=== PATIENT | female | born 1985 | race Hispanic/Latino ===

== ENCOUNTER 2016-12-19 14:29 | Outpatient (CLI) | payer OTHER, MEDICAID ==
[2016-12-19] MEDS ORDERED: LACTATED RINGERS 500 ML IV ONE (14:30)
[2016-12-19 15:17] VITALS: BP 108/69
[2016-12-19 16:31] LABS: Bacteria,Urine 1+ /HPF (Negative); Bilirubin,Urine NEG (Negative); Blood,Urine SM (Negative); Ketones,Urine NEG (Negative); Leukocyte Esterase,Urine LG (Negative); Mucus,Urine FEW /HPF; Nitrite,Urine NEG (Negative); Protein,Urine <15 mg/dL mg/dL (Negative); Urobilinogen,Urine < 2.0 mg/dL (<2.0)
--- NOTE | 2016-12-20 07:55 | Ultrasound Report ---
ULTRASOUND OB LIMITED History: Leaking fluid, premature rupture of membranes. Technique: Transabdominal ultrasound with Doppler interrogation. Gestation: Single Position: Breech Amniotic Fluid: Normal HARVEY = 19.5 cm Heart Rate: 143 BPM
== END 2016-12-19 17:41 | disposition home or self-care (01) ==
LOC: TRG 14:29
PROVIDERS: ATTEND Obstetrics & Gynecology
DX: O99.333 Smoking (tobacco) complicating pregnancy, third trimester (principal); O32.1XX0 Maternal care for breech presentation, not applicable or unspecified; O42.92 Full-term premature rupture of membranes, unspecified as to length of time between rupture and onset of labor; O47.02 False labor before 37 completed weeks of gestation, second trimester; Z3A.24 24 weeks gestation of pregnancy
CPT/HCPCS: 76815; 81001

== ENCOUNTER 2017-04-02 12:53 | Inpatient (IN) | payer MEDICAID ==
--- NOTE | 2017-04-02 15:29 | History and Physical Report ---
History of Present Illness Date of examination: 04/02/17 Date of admission: 04/02/2017 Chief complaint: 31 yo at 39w6d with EDC 04/03/2017 admitted for non-reassuring status and polyhydramnios for induction of labor. She telephoned and c/o persitent painful contractions and persistent "leakage" and was sent to triage and found to have non-reactive NST, BPP 6/8 (no breathing) and an HARVEY of 28. MBT O pos, Rub-NOT IMMUNE, GBS neg Known Arely-cesar Risk Factors in this : Non-reassuring status at 39 wk EGA, Polyhydramnios, Maternal smoking, 1 abnl value on GTT. History of present illness: Remainder of H&P from [facility] and confirmed today OB Intake Father of baby: Mayito Ernandez FOB contact #: [phone] Vital Signs Height: 64 in. Weight (lb): 140 BMI: 24.1 BP: 114/ 74 mm Hg Ur. Protein: negative Ur. Glucose: negative Chief Complaint/Current Status: Patient presents for missed period. No complaints.....aharris Menstrual History Regularity: regular Menses every: 28 days Duration: 5 LMP: 06/27/2016 LMP reliability: definite LMP character: diabetes solutions specialist test type: urine test BC at conception: none Planned ? yes EDC Calculations LMP: 04/03/2017 Past History : 3 Term Births: 2 Premature Births: 0 Living Children: 2 Para: 2 Mult. Births: 0 Prev : 0 Aborta: 0 # 1 Delivery date: 10/11/2010 Weeks Gestation: 39 Delivery type: Vaginal Anesthesia type: epidural Delivery location: [facility] Infant Sex: male Comments: ERROR IN CHARTING # 2 Delivery date: 10/11/2010 Weeks Gestation: 39 Delivery type: Anesthesia type: none Delivery location: [facility] Sex: male weight: 8.88 Name: vanessa Comments: none # 3 Delivery date: 06/02/2012 Weeks Gestation: 39 Delivery type: Vaginal Anesthesia type: epidural Delivery location: [facility] Sex: male weight: 7.81 Comments: none Past Medical History: Reviewed history from 04/16/2015 and no changes required: Anxiety Past Surgical History: Reviewed history from 06/29/2012 and no changes required: positive, T&A tongue oral Past Medical History Abnormal PAP: negative LINDA Exposure: negative Infertility: negative Uterine Anomaly: negative Uterine Surgery (not C/S): negative Other Gynecologic Problems: negative Social Hx: Patient is single appeals coordinator Patient is Smoking History: Patient currently smokes every day. Infection History Hx of STD: none HIV Risk Eval: low risk Hepatitis B Risk Eval: low risk Personal hx. of genital herpes: no Partner hx. of genital herpes: no Varicella/Chicken Pox Status: Previous Disease TB Risk: no Genetic History Congenital Heart Defect: Mom: no Dad: no Jill Disease: Mom: no Dad: no Thalassemia Mom: no Dad: no Neural Tube Defect Mom: no Dad: no Down's Syndrome Mom: no Dad: no Audi-Sachs Mom: no Dad: no Sickle Cell Disease/Trait Mom: no Dad: no Hemophilia Mom: no Dad: no Muscular Dystrophy Mom: no Dad: no Cystic Fibrosis Mom: no Dad: no [place] Chorea Mom: no Dad: no Mental Retardation Mom: no Dad: no Fragile X Mom: no Dad: no Other Genetic/Chromosomal Disorder Mom: no Dad: no Child w/other defect Mom: no Dad: no Enviromental Exposures Xray Exposure: no Medication, drug, or alcohol use since LMP: no Chemical/Other Exposure: no Exposure to Cat Liter: no Hx of Parvovirus (Fifth Disease): no Occupational Exposure to Children: none Active Medications (reviewed today): MULTI VITAMIN () ORTHO TRI-CYCLEN LO 0.025 MG TABS (NORGESTIMATE-ETHINYL ESTRADIOL) 1 po q day as directed KLONOPIN TABS (CLONAZEPAM TABS) CELEXA TABS (CITALOPRAM HYDROBROMIDE TABS) Current Allergies (reviewed today): ERYTHROMYCIN (Critical) Laboratory Results Routine Urinalysis Leukocytes: negative Nitrite: negative Urobilinogen: negative Protein: negative pH: 6.0 Blood: negative Spec. [place]: 1.015 Ketone: negative Bilirubin: negative Glucose: negative Urine HCG: positive Review of Systems General Denies fever, chills, sweats, anorexia, fatigue, weakness, malaise, weight loss and sleep disorder. Denies nausea, vomiting, headache, swelling of legs, abdominal pain, vaginal discharge, vaginal bleeding and contractions. Denies vaginal discharge, incontinence, dysuria, hematuria, urinary frequency, amenorrhea, menorrhagia, abnormal vaginal bleeding, pelvic pain, genital sores, decreased libido, painful periods, painful sex, urinary urgency, hot flashes, vaginal dryness, vaginal itching and vaginal odor. CV Denies chest pains, palpitations, syncope, dyspnea on exertion, orthopnea, PND and peripheral edema. Resp Denies cough, dyspnea at rest, excessive sputum, hemoptysis, wheezing and pleurisy. GI Denies nausea, vomiting, diarrhea, constipation, change in bowel habits, abdominal pain, melena, hematochezia, jaundice, gas/bloating, indigestion/ heartburn, dysphagia and odynophagia. Endo Denies cold intolerance, heat intolerance, polydipsia, polyphagia, polyuria and unusual weight change. Breast Denies left breast lump, right breast lump, nipple discharge, bloody discharge from nipple, breast pain, abnormal mammogram and breast enlargement. MS Denies back pain, joint pain, joint swelling, muscle cramps, muscle weakness, stiffness, arthritis, sciatica, restless legs, leg pain at night and leg pain with exertion. Derm Denies rash, itching, dryness and suspicious lesions. Neuro Denies paralysis, paresthesias, headache, seizures, tremors, vertigo, transient blindness, frequent falls, frequent headaches and difficulty walking. Psych Denies depression, anxiety, irritability and mood swings. Eyes Denies blurring, diplopia, irritation, discharge, vision loss, eye pain and photophobia. ENT Denies earache, ear discharge, tinnitus, decreased hearing, nasal congestion, nosebleeds, sore throat and hoarseness. Allergy Denies urticaria, allergic rash, hay fever and recurrent infections. Heme Denies abnormal bruising, bleeding and enlarged lymph nodes. PHYSICAL EXAM HEENT: PERRLA, normal conjunctiva, external nose and nasal mucosa normal, oropharynx clear Neck/Thyroid: supple, thyroid normal Skin no significant abnormal lesions or rashes Chest: respiratory effort normal, clear to auscultation Breasts: normal without skin changes or masses CV: regular, normal S1-S2, no murmur, no rub, no gallop Abdomen: normal bowel sounds, soft, nontender, no HSM Musculoskeletal: grossly normal ROM in joints, no joint tenderness or muscle weakness Neuro: grossly normal DTRs, sensation, strength, cranial nerves Extremities: no clubbing, cyanosis, or edema DIRECTOR POST Exams Vulva/Vagina: No lesions, normal BUS, normal rugae Cervix: No lesions; no cervical motion tenderness Uterus: normal size and position, midline, mobile palpates to approx 4 weeks Adnexae: no masses or tenderness Rectovaginal: no masses or tenderness Flowsheet View for Follow-up Visit Weight: 140 Blood pressure: 114 / 74 Urine protein: negative Urine glucose: negative Urine nitrite: negative Education Provided: 1) Discussed post- contraception options and the plan at this time is for tubal ligation. Impression & Recommendations: Problem # 1: Other specified irregular menstruation (DXB32-A47.5) Orders: Vaginal Delivery(w/ antepartum and care) (CPT-06991) Ofc Vst Est 33914 (CPT-97954) Handling specimen fee (CPT-86236) Urine Test (UPT) (CPT-23221) Urine Chemstrip (CPT-73865) Missed period US (CPT-71549) Pap/GC/CT-HPV w/ rflx 16/18([id number])([id number]) (CPT-73611) Past History - Obstetrical History : 3 Medications and Allergies Allergies Allergy/AdvReac Type Severity Reaction Status Date / Time No Known Allergies Allergy Verified 12/19/16 14:38 - Vital Signs Vital signs: Vital Signs Pulse BP 100 H 120/70 04/02/17 13:11 04/02/17 13:11 Temp Pulse Resp BP Pulse Ox 98.3 F 100 H 18 120/70 98 04/02/17 13:21 04/02/17 13:21 04/02/17 13:21 04/02/17 13:21 04/02/17 13:21 Results All other labs normal. Assessment and Plan - Patient Problems (1) Non-reassuring heart rate or rhythm affecting management of mother Current Visit: Yes Status: Acute Plan to address problem: admit for induction of labor with Cervidil due to unfavorable cervix and polyhydramnios (2) Polyhydramnios affecting in third trimester Current Visit: Yes Status: Acute (3) 39 weeks gestation of Current Visit: Yes Status: Acute (4) Smoker Current Visit: Yes Status: Chronic
[2017-04-02] MEDS ORDERED: XYLOCAINE 2% INFILTRATI ONE (15:38)
[2017-04-02] MEDS ORDERED: ePHEDrine SULFATE IV PRN ×2 (15:38→22:53)
[2017-04-02] MEDS ORDERED: SUBLIMAZE IV PRN (15:38)
[2017-04-02] MEDS ORDERED: STADOL IV PRN (15:38)
[2017-04-02] MEDS ORDERED: BRETHINE IVP PRN (15:38)
[2017-04-02] MEDS ORDERED: MINERAL OIL PO PRN (15:38)
[2017-04-02] MEDS ORDERED: BRETHINE SUB-Q PRN (15:38)
[2017-04-02] MEDS ORDERED: ZOFRAN IV PRN (15:38)
--- NOTE | 2017-04-02 15:55 | Ultrasound Report ---
FINAL REPORT EXAM: US OB LIMITED HISTORY: decreased movment TECHNIQUE: Ultrasound biophysical profile PRIORS: None. FINDINGS: Single live intrauterine gestation is present with heart rate of 150 beats per minute Biophysical profile was performed respiratory motion 0 Body movement 2 tone 2 Amniotic fluid volume 2 Total 10/13 Impression Biophysical profile 10/13
--- NOTE | 2017-04-02 15:58 | Ultrasound Report ---
FINAL REPORT EXAM: US OB BPP WO NON-STRESS HISTORY: NON REACTIVE NST, DECRASED BEAT TO BEAT TECHNIQUE: PRIORS: None. FINDINGS: Single live intrauterine gestation is present with heart rate of 150 beats per minute Biophysical profile was performed respiratory motion 0 Body movement 2 tone 2 Amniotic fluid volume 2 Total 10/13 Impression Biophysical profile 10/13 IMPRESSION: Biophysical profile 10/13
[2017-04-02] MEDS ORDERED: CERVIDIL VG ONE ×2 (16:00→18:00)
[2017-04-02 16:48] LABS: Hematocrit 32.9 % (30.3-42.9); Hemoglobin 10.9 gm/dl (10.1-14.3); Mean Corpuscular HGB Conc 33 % (30-34); Mean Corpuscular Hemoglobin 27 pg (28-32); Mean Corpuscular Volume 83 fl (79-97); Platelet Count 310 K/mm3 (140-440); Red Blood Count 3.98 M/mm3 (3.65-5.03); Red Cell Distribution Width 14.3 % (13.2-15.2); White Blood Count 19.2 K/mm3 (4.5-11.0)
[2017-04-02 16:50] LABS: Alanine Aminotransferase 7 units/L (7-56); Albumin 3.3 g/dL (3.9-5); Albumin/Globulin Ratio 1.1 %; Alkaline Phosphatase 153 units/L (35-129); Anion Gap 20 mmol/L; BUN/Creatinine Ratio 20; Blood Urea Nitrogen 8 mg/dL (7-17); Calcium 8.6 mg/dL (8.4-10.2); Carbon Dioxide 21 mmol/L (22-30); Chloride 97.4 mmol/L (98-107); Glucose 79 mg/dL (65-100); Sodium 134 mmol/L (137-145); Total Protein 6.3 g/dL (6.3-8.2)
[2017-04-02] MEDS ORDERED: AMBIEN PO PRN (19:28)
[2017-04-02] MEDS ORDERED: HABITROL TD SCH (20:00)
[2017-04-02] MEDS: LACTATED RINGERS 1,000 ML IV SCH ×3 (21:52→23:34)
--- NOTE | 2017-04-02 22:08 | Event Note ---
Date: 04/02/17 Called for frequent painful contractions which have now spaced out a little, tracing now Cat 2 after maternal dose of fentanyl. Will preload and give epidural then try to AROM and begin Pitocin. Cervidil still in at this point. Nurse exam is a change at 3 cm, 40, -3 and dev to R.
--- NOTE | 2017-04-02 22:52 | Anesthesia Consultation ---
Anesthesia Consult and Med Hx Date of service: 04/02/17 - Airway Anesthetic Teeth Evaluation: Good ROM Head & Neck: Adequate Mental/Hyoid Distance: Adequate Mallampati Class: Class II Intubation Access Assessment: Good - Pulmonary Exam CTA: Yes - Cardiac Exam Cardiac Exam: No Murmur - Pre-Operative Health Status ASA Pre-Surgery Classification: ASA2 Proposed Anesthetic Plan: Epidural - Pulmonary Hx Asthma: No COPD: No Hx Pneumonia: No - Cardiovascular System Hx Hypertension: No - Central Nervous System Hx Seizures: No Hx Psychiatric Problems: Yes (anxiety) - Endocrine Hx Renal Disease: No Hx End Stage Renal Disease: No Hx Hypothyroidism: No Hx Hyperthyroidism: No - Hematic Hx Anemia: No Hx Sickle Cell Disease: No - Other Systems Hx Alcohol Use: No
[2017-04-02] MEDS ORDERED: NARCAN 2 MG/2 ML IV PRN (22:53)
[2017-04-02] MEDS ORDERED: fentaNYL-BUPIV 2 MCG/ML-0.125% 200 MCG/100 ML BAG EPIDURAL SCH (23:00)
[2017-04-03] MEDS: LACTATED RINGERS 1,000 ML IV SCH (01:00)
[2017-04-03] MEDS: PITOCin/NS 20 UNIT/1000ML DRIP 20 UNITS/1,000 ML BAG IV SCH ×2 (02:12→03:22)
--- NOTE | 2017-04-03 02:34 | Procedure Note ---
OB Delivery Note - Delivery Date of Delivery: 04/03/17 Surgeon: SELIN PERZE Estimated blood loss: 300cc - Vaginal Delivery presentation: vertex Delivery position: OA Intrapartum events: mult. late decelerations (not consistent nor with every contraction and close to delivery) Delivery induction: cervidil Delivery augmentation: rupture of membranes Delivery monitor: external FHT, external uterine, internal FHT, internal uterine Route of delivery: Delivery placenta: manual (calcified, bi-lobed, adherent) Delivery cord: 3 umbilical vessels Episiotomy: none Delivery laceration: 1st degree Delivery repair: vicryl Anesthesia: epidural - Infant A at 1 minute: 8 at 5 minutes: 9 Infant Gender: Female (6#8oz)
[2017-04-03] MEDS ORDERED: PHENERGAN PO PRN (02:35)
[2017-04-03] MEDS ORDERED: ZOFRAN IV PRN (02:35)
[2017-04-03] MEDS ORDERED: MILK OF MAGNESIA PO PRN (02:35)
[2017-04-03] MEDS ORDERED: BENADRYL PO PRN (02:35)
[2017-04-03] MEDS ORDERED: PHENERGAN PR PRN (02:35)
[2017-04-03] MEDS ORDERED: DULCOLAX PR PRN (02:35)
[2017-04-03] MEDS ORDERED: TYLENOL PO PRN (02:35)
[2017-04-03] MEDS ORDERED: SODIUM CHLORIDE FLUSH SYRINGE 10 ML IV PRN (03:00)
[2017-04-03] MEDS: TUCKS PAD TP PRN (04:28)
[2017-04-03] MEDS: MOTRIN PO SCH ×4 (04:28→23:31)
[2017-04-03] MEDS: NORCO 5/325 PO PRN ×3 (08:15→23:31)
[2017-04-03 15:49] LABS: Hematocrit 27.4 % (30.3-42.9)
[2017-04-03] MEDS: HABITROL TD SCH (20:14)
[2017-04-04] MEDS: NORCO 5/325 PO PRN ×3 (05:31→18:07)
[2017-04-04] MEDS: MOTRIN PO SCH ×3 (05:31→18:07)
[2017-04-04] MEDS: TUCKS PAD TP PRN (05:37)
[2017-04-04] MEDS ORDERED: BOOSTRIX IM ONE (06:00)
--- NOTE | 2017-04-04 08:14 | Progress Note ---
Assessment and Plan patient resting well, no complaints. Lochia scant, VSSAF, H&H 9.0/27.4 ( acute anemia from blood loss.) Patient desires d/c home tomorrow morning. Will do may go. plan for routine f/u in office. - Patient Problems (1) Vaginal delivery Current Visit: Yes Status: Acute Subjective - Subjective Date of service: 04/04/17 Principal diagnosis: day #1 s/p Patient reports: appetite normal, voiding normally, pain well controlled, ambulating normally, no dizzy ambulation, no nauseated : doing well, nursing well Objective - Vital Signs Latest vital signs: Vital Signs Temp Pulse Resp BP BP Pulse Ox 04/03/17 22:27 97.8 F 81 20 95/53 96 04/03/17 16:51 97.9 F 76 18 93/66 98 04/03/17 11:55 98.4 F 73 18 86/47 86/47 96 04/03/17 08:47 98.2 F 82 18 93/57 98 Intake and Output 04/03/17 04/04/17 04/04/17 23:59 07:59 15:59 Intake Total 600 720 Balance 600 720 Intake: Oral 360 720 Intake, Free Water 240 Other: Total, Intake Amount 360 720 # Voids Void 1 3 # Bowel Movements 0 - Exam Breasts: Present: normal, Cardiovascular: Present: Regular rate Lungs: Present: Clear to auscultation, Normal air movement Abdomen: Present: normal appearance, soft Vulva: both: laceration/episiotomy Uterus: Present: normal, firm, fundal height at umbilicus Extremities: Present: normal - Labs Labs: Abnormal lab results 04/03/17 Range/Units 14:56 Hgb 9.0 L (10.1-14.3) gm/dl Hct 27.4 L (30.3-42.9) %
--- NOTE | 2017-04-04 08:17 | Discharge Summary ---
Providers - Providers Date of Admission: 04/02/17 16:09 Date of discharge: 04/05/17 Attending physician: SELIN PEREZ Primary care physician: ALYSON CROWDER Hospitalization Reason for admission: induction of labor (polyhydramios and nonreassuring FHT) Delivery: Episiotomy: none Laceration: 1st degree Incision: normal, dry, intact Other procedures: none complications: none Discharge diagnosis: IUP at term delivered [place] baby: female Hospital course: uncomplicated vaginal Condition at discharge: Good Disposition: DC-01 TO HOME OR SELFCARE - Discharge Diagnoses (1) Vaginal delivery Status: Acute Plan - Discharge Medications Prescriptions: Ibuprofen [Motrin 600 MG tab] 600 mg PO Q8H PRN #30 tablet PRN Reason: Pain - Provider Discharge Summary Activity: routine, no sex for 6 weeks, no heavy lifting 4 weeks, no strenuous exercise Diet: routine Instructions: routine Additional instructions: [] Smoking cessation referral if applicable(refer to patient education folder for contact #) [] Refer to [facility] Booklet Call your doctor immediately for: * Fever > 100.5 * Heavy vaginal bleeding ( >1 pad per hour) * Severe persistent headache * Shortness of breath * Reddened, hot, painful area to leg or breast * Drainage or odor from incision. * Keep incision clean and dry at all times and follow doctor's instructions regarding bathing/showering - Follow up plan Follow up: ALYSON CROWDER MD [Primary Care Provider] - 05/04/17 (Congratulations! Please call [phone] to schedule your visit in 4 weeks. Call for any questions or concerns. )
[2017-04-04] MEDS ORDERED: M-M-R II VACCINE SUB-Q ONE (10:00)
[2017-04-04] MEDS: HABITROL TD SCH (20:15)
[2017-04-05] MEDS: MOTRIN PO SCH ×3 (00:19→12:32)
[2017-04-05] MEDS: NORCO 5/325 PO PRN ×3 (00:19→12:36)
[2017-04-05] MEDS ORDERED: M-M-R II VACCINE SUB-Q ONE (10:00)
[2017-04-05 11:34] VITALS: BP 97/61
== END 2017-04-05 12:45 | disposition home or self-care (01) | DRG 774 ==
LOC: TRG 12:53 → LD 16:09 → OB 04-03 04:11
PROVIDERS: ADMIT Obstetrics & Gynecology; ATTEND Obstetrics & Gynecology
PROC: 10E0XZZ Delivery of Products of Conception, External Approach (ICD-10-PCS; principal; 2017-04-03)
PROC: 0HQ9XZZ Repair Perineum Skin, External Approach (ICD-10-PCS; 2017-04-03)
PROC: 3E0P7VZ Introduction of Hormone into Female Reproductive, Via Natural or Artificial Opening (ICD-10-PCS; 2017-04-03)
PROC: 3E0R3BZ Introduction of Anesthetic Agent into Spinal Canal, Percutaneous Approach (ICD-10-PCS; 2017-04-03)
PROC: 00HU33Z Insertion of Infusion Device into Spinal Canal, Percutaneous Approach (ICD-10-PCS; 2017-04-03)
PROC: 3E0234Z Introduction of Serum, Toxoid and Vaccine into Muscle, Percutaneous Approach (ICD-10-PCS; 2017-04-04)
DX: O76 Abnormality in fetal heart rate and rhythm complicating labor and delivery (principal); O73.0 Retained placenta without hemorrhage; O40.3XX0 Polyhydramnios, third trimester, not applicable or unspecified; O99.334 Smoking (tobacco) complicating childbirth; F17.200 Nicotine dependence, unspecified, uncomplicated; O99.03 Anemia complicating the puerperium; O70.0 First degree perineal laceration during delivery; D62 Acute posthemorrhagic anemia; O99.344 Other mental disorders complicating childbirth; F41.9 Anxiety disorder, unspecified; Z3A.39 39 weeks gestation of pregnancy; Z37.0 Single live birth; Z23 Encounter for immunization; O43.193 Other malformation of placenta, third trimester
CPT/HCPCS: 36415; 59200; 76815; 76819; 80053; 85014; 85018; 85027; 86592; 86850; 86900; 86901; 88307; 90471; 90707; 90715; 99211; G0463; J2590; J3010; J7120

== ENCOUNTER 2017-05-31 10:35 | Day surgery (SDC) | payer MEDICAID ==
--- NOTE | 2017-05-30 16:10 | Short Stay Summary ---
Short Stay Documentation Date of service: 05/30/17 Narrative H&P: 31 you requests sterilization by laparoscopic fulguration, risks and failure rate discussed and consent is given in the office 1 d prior and at other visits. Says she is "sensitive' to erythromycin. Pt seen and examined on DOS and no changes in status. - History Principal diagnosis: elective sterilization Past Medical History: other (anxiety, currently no meds) Past Surgical History: tonsillectomy (tongue and oral surgery) Social history: no significant social history - Allergies and Medications Current Medications: Allergies erythromycin base Adverse Reaction (Verified 05/26/17 14:36) stomach cramps Home Medications Medication Instructions Recorded Confirmed Last Taken Type No Known Home Medications [No 05/26/17 05/26/17 Unknown History Reported Home Medications] Active Medications Lactated Ringer's (Lactated Ringers) 1,000 mls @ 125 mls/hr IV DIRECT DAQUAN - Physical exam General appearance: no acute distress Integumentary: no rash HEENT: Atraumatic Lungs: Clear to auscultation Breasts: deferred Heart: Regular rate, No murmurs Gastrointestinal: normal, no tenderness, no distended, no masses Female Genitourinary: normal Rectal Exam: deferred Extremities: no ischemia, No edema Neurological: Normal gait, Normal speech, Cranial nerves 3-12 NL - Brief post op/procedure progress note Date of procedure: 05/31/17 Pre-op diagnosis: elective sterilization Procedure: Laparoscopic bilateral tubal fulguration Anesthesia: GETA Surgeon: SELIN PEREZ Estimated blood loss: minimal Pathology: none Condition: stable - Hospital course Hospital course: Patient did well in the PACU and was discharged home with good bladder function and ambulation to follow up in my office in 1 week - Disposition Condition at discharge: Good Disposition: DC-01 TO HOME OR SELFCARE - Discharge Diagnoses (1) Sterilization Status: Acute Short Stay Discharge Plan Activity: no restrictions Weight Bearing Status: Full Weight Bearing Diet: regular Wound: keep clean and dry Additional Instructions: PUMP AND DISCARD BREAST MILK FOR 24 HOURS. Follow up with: ALYOSN CROWDER MD [Primary Care Provider] - 7 Days
[~2017-05-31 10:35] MED LIST: LACTATED RINGERS 1,000 ML IV SCH; MARCAINE 0.5% INFILTRATI ONE
[2017-05-31] MEDS ORDERED: MARCAINE 0.5% INFILTRATI ONE (11:09)
[2017-05-31] MEDS ORDERED: NACL BACTERIOSTATIC INFILTRATI ONE (11:24)
[2017-05-31] MEDS ORDERED: DILAUDID IV PRN (11:33)
[2017-05-31] MEDS ORDERED: ZOFRAN IV PRN (11:33)
--- NOTE | 2017-05-31 11:34 | Anesthesia Day of Surgery ---
Anesthesia Day of Surgery - Day of Surgery Patient Examined: Yes Patient H&P Reviewed: Yes Patient is NPO: Yes
--- NOTE | 2017-05-31 11:35 | Anesthesia Consultation ---
Anesthesia Consult and Med Hx Date of service: 05/31/17 - Airway Anesthetic Teeth Evaluation: Good, Chipped ROM Head & Neck: Adequate Mental/Hyoid Distance: Adequate Mallampati Class: Class II Intubation Access Assessment: Probably Good - Pulmonary Exam CTA: Yes - Pre-Operative Health Status ASA Pre-Surgery Classification: ASA2 (breast feeding/instructed to pump and dump x 24 hours tae 3 mos pp) - Pulmonary Hx Smoking: Yes Hx Asthma: No COPD: No Hx Pneumonia: No - Cardiovascular System Hx Hypertension: No - Central Nervous System Hx Seizures: No Hx Psychiatric Problems: Yes - Endocrine Hx Renal Disease: No Hx End Stage Renal Disease: No Hx Hypothyroidism: No Hx Hyperthyroidism: No - Hematic Hx Anemia: No Hx Sickle Cell Disease: No - Other Systems Hx Alcohol Use: No Hx Cancer: No
[2017-05-31] MEDS ORDERED: PEPCID IV NR (12:00)
[2017-05-31 12:05] LABS: Hematocrit 39.8 % (30.3-42.9); Hemoglobin 12.8 gm/dl (10.1-14.3); Mean Corpuscular HGB Conc 32 % (30-34); Mean Corpuscular Hemoglobin 27 pg (28-32); Mean Corpuscular Volume 83 fl (79-97); Platelet Count 260 K/mm3 (140-440); Red Blood Count 4.79 M/mm3 (3.65-5.03); Red Cell Distribution Width 16.6 % (13.2-15.2)
[2017-05-31] MEDS ORDERED: DIPRIVAN 10 MG/ML IV ONE (12:45)
[2017-05-31] MEDS ORDERED: SUBLIMAZE ONE (12:52)
[2017-05-31] MEDS ORDERED: ZEMURON IV ONE (13:04)
[2017-05-31] MEDS ORDERED: XYLOCAINE MPF 2% ONE (13:04)
[2017-05-31] MEDS ORDERED: DECADRON ONE (13:07)
[2017-05-31] MEDS ORDERED: ZOFRAN ONE (13:08)
[2017-05-31] MEDS ORDERED: ROBINUL ONE (13:26)
[2017-05-31] MEDS ORDERED: NEOSTIGMINE ONE (13:26)
--- NOTE | 2017-05-31 13:45 | Operative Report ---
Operative Report Operative Report: Date of procedure: 05/31/2017 Pre-operative diagnosis: Elective sterilization Post-operative diagnosis: Same Procedure name(s): Laparoscopic bilateral tubal fulguration Surgeon: Zeynep Banks M.D. Senior Qa Analyst: CORBIN Anesthesia: Gen. endotracheal Findings: Normal tubes, uterus and ovaries EBL: Less than 10 mL Procedure in detail: Patient was taken to the operating room, placed in the supine position. After adequate general endotracheal anesthesia was obtained she was prepped and draped in the dorsolithotomy position in the usual fashion. A surgical timeout was taken and all members of the OR team were attentive. Attention was turned to the perineum and the cervix was exposed with retractors and grasped with a single-tooth tenaculum and sounded to 8 cm cervix was serially dilated up to a #14 dilator and the TerraPerkslka manipulator was placed in the cervix in the usual fashion. A Kerr catheter was placed sterilely. The bladder was draining clear urine at the beginning and the end of the procedure. The legs were lowered and attention was turned to the abdomen. A vertical infraumbilical incision was made in the umbilicus and a direct entry procedure with direct visualization was carried out to introduce a 5 mm trocar in the usual fashion without incident. A similar incision was made suprapubically and a stent trocar was placed through this under direct visualization and its balloon was inflated. Inspection revealed normal pelvic organs and and in turn, each fallopian tube was grasped in several places and fulgurated to no resistance in the midportion. Hemostasis was adequate. There was no bleeding from either trocar site and the 5 mm laparoscope was moved to the lower port to evaluate the status of the upper port. Both ports sites were injected with 10 mL, total of 2% lidocaine The procedure was then terminated and all the instruments were removed from the abdomen and from the perineum at the end of the case. Both incisions were closed with inverted subcuticular sutures of 4-0 Vicryl and Steri-Strips and Band-Aids. Patient tolerated procedure well and was discharged to recovery room in good condition.
[2017-05-31] MEDS ORDERED: NORCO 5/325 PO PRN (13:57)
[2017-05-31] MEDS: SUBLIMAZE IV PRN ×2 (14:04→14:22)
[2017-05-31 14:59] VITALS: BP 115/62
== END 2017-05-31 15:23 | disposition home or self-care (01) ==
LOC: OR 10:35
PROVIDERS: ATTEND Obstetrics & Gynecology
DX: Z30.2 Encounter for sterilization (principal); F41.9 Anxiety disorder, unspecified; F17.210 Nicotine dependence, cigarettes, uncomplicated; Z98.890 Other specified postprocedural states
CPT/HCPCS: 36415; 58670; 81025; 85027; 86850; 86900; 86901; J1100; J2405; J2704; J2710; J3010; J7120